=== PATIENT | female | born 1995 | race Caucasian/White ===

== ENCOUNTER 2017-07-27 04:07 | Emergency (ER) | payer BC ==
[~2017-07-27] VITALS: Ht 160 cm; Wt 61.4 kg
[2017-07-27 04:11] VITALS: BP 122/81; TEMP 97.9
[2017-07-27] MEDS ORDERED: BLISOVI 24 FE1 EACH PO (04:14)
[2017-07-27] MEDS ORDERED: AMOXICILLIN 50500 MG PO (05:37)
[2017-07-27] MEDS ORDERED: DECADRON6 MG PO (05:38)
[2017-07-27 05:48] VITALS: PULSE 77
== END 2017-07-27 05:49 | disposition home or self-care (01) ==
LOC: COL.ER 04:07
DX: J02.0 Streptococcal pharyngitis (principal)
CPT/HCPCS: J8540